=== PATIENT | female | born 1955 | race Caucasian/White ===

== ENCOUNTER 2016-12-26 04:12 | Emergency (ER) | payer BC ==
[~2016-12-26] VITALS: Ht 149.9 cm; Wt 65.8 kg
[~2016-12-26 04:12] MED LIST: ATOR20TA42; ECOT81TA2; LIPI40TA; Z.0.NO CURRENT MEDS
[2016-12-26 04:19] VITALS: BP 155/94; PULSE 87; RESP 20; TEMP 97.9; O2SAT 98
[2016-12-26] MEDS ORDERED: PERM5CRE11 TOPICAL (04:52)
[2016-12-26] MEDS ORDERED: BUPR100T4 PO (04:52)
--- NOTE | 2016-12-26 05:01 | PD ---
HPI Chief Complaint: Skin Problem Time Seen by Provider: 04:51 Travel History International Travel<30 days: No Contact w/Intl Traveler<30days: No Traveled to known affect area: No History of Present Illness HPI The patient is a 61-year-old female that was being treated for scabies and she used permethrin cream for the treatment. At about 1:30 PM yesterday she put on her bare hands and rubbed the per me throughout all over body with her bare hands. In doing so she exposed the volar aspect of both hands to multiple doses of permethrin. The patient at 2 AM complains of burning of her hands and some slight burning of the soles of the feet. The patient also put permethrin on the soles of her feet and walk around afterwards. She denies any allergies and, specifically, she denies any latex allergies. She does use gloves at work. The patient tried multiple substances including rubbing alcohol to get rid of the burning in her hands. PFSH Past Medical History Blood Disorders: No Heart Rhythm Problems: No Cancer: Yes (UTERINE) Cardiac Catheterization: No Cardiovascular Problems: No High Cholesterol: No Congestive Heart Failure: No Diabetes: No Diminished Hearing: No Endocrine: No Genitourinary: No Headaches: Yes Hypertension: No Musculoskeletal: No Neurologic: Yes (HEADACHE) Psychiatric: No Reproductive: No Myocardial Infarction: No Seizures: No Sleep Apnea: Yes Influenza Vaccination: Yes Past Surgical History Appendectomy: Yes Cholecystectomy: Yes Coronary Artery Bypass Graft: No Hysterectomy: Yes Pacemaker: No Other Surgery: Yes (TIA,LISA,) Social History Alcohol Use: No Tobacco Use: Yes (6-7 CIGARETTES/DAY) Substance Use: No Allergies-Medications (Allergen,Severity, Reaction): Coded Allergies: No Known Allergies (Verified , 12/26/16) Reported Meds & Prescriptions Reported Meds & Active Scripts Active Reported Elimite Topical (Permethrin) 5% Cream 1 Applic TOPICAL ONCE Bupropion HCl 100 Mg Tab 150 Mg PO DAILY Review of Systems Except as stated in HPI: all other systems reviewed are Neg Physical Exam Narrative GENERAL: Well-nourished, well-developed patient in slight apparent distress with her bilateral volar hand burning.. SKIN: Warm and dry. The palms and volar aspect of the fingers appear dry and slightly erythematous. They're slightly tender. There is no evidence of infection in these areas. There is no skin cracking present. The feet actually appear normal on the soles of the foot where the patient perceives some burning. There is a lesion that is tender on the right foot but this is been there for years and she knows that a gear lapper can remove this if it gives her problems. HEAD: Normocephalic. EYES: No scleral icterus. No injection or drainage. NECK: Supple, trachea midline. No JVD or lymphadenopathy. CARDIOVASCULAR: Regular rate and rhythm without murmurs, gallops, or rubs. RESPIRATORY: Breath sounds equal bilaterally. No accessory muscle use. GASTROINTESTINAL: Abdomen soft, non-tender, nondistended. MUSCULOSKELETAL: No cyanosis, or edema. BACK: Nontender without obvious deformity. No CVA tenderness. Data Data Last Documented VS Vital Signs Date Time Temp Pulse Resp B/P Pulse Ox O2 Delivery O2 Flow Rate FiO2 12/26/16 04:52 20 12/26/16 04:19 97.9 87 155/94 98 MDM Medical Decision Making Medical Screen Exam Complete: Yes Emergency Medical Condition: Yes Medical Record Reviewed: Yes Differential Diagnosis Allergic reaction, contact dermatitis, skin irritation from permethrin Narrative Course The patient likely has current irritation from permethrin. The multiple times she applied per me threatened on her bare hands and the rubbing action over her skin apparently gave her an extremely large dose of her me threatened to the volar aspect of her hands. The feet actually looked normal but it is possible that after she put the cream on the soles of her feet she walked around on them working the permethrin in this area. Diagnosis Primary Impression: Skin irritation Additional Instructions: As we discussed, you can try a hydrating cream containing glycerin for hands. Your hands will get better if you do not apply any irritants such as alcohol, dishwater, cleaning agents, gasoline or other substances that could dry your skin further. Follow-up with a electron beam welder if you have scheduled. Med/Other Pt SpecificInfo: No Change to Meds Disposition: 01 DISCHARGE HOME Condition: Stable Rodrigo Grace MD Dec 26, 2016 05:01 Rodrigo Grace MD Dec 26, 2016 05:01
== END 2016-12-26 05:34 | disposition home or self-care (01) ==
LOC: PHED 04:12
DX: L98.8 Other specified disorders of the skin and subcutaneous tissue (principal); T60.1X1A Toxic effect of halogenated insecticides, accidental (unintentional), initial encounter; B86 Scabies; G47.30 Sleep apnea, unspecified; F17.210 Nicotine dependence, cigarettes, uncomplicated; Z85.42 Personal history of malignant neoplasm of other parts of uterus; Z86.73 Personal history of transient ischemic attack (TIA), and cerebral infarction without residual deficits
CPT/HCPCS: 99282